=== PATIENT | female | born 1995 | race Caucasian/White ===

== ENCOUNTER 2017-10-13 12:12 | Emergency (ER) | payer BC ==
[~2017-10-13] VITALS: Ht 152.4 cm; Wt 52.3 kg
[~2017-10-13 12:12] MED LIST: ALBUTEROL0.83 MG/ML IH; CLARITIN 1010 MG/TAB PO; LEVAQUIN 5500 MG/TA1 PO; NORCO 325 MG-7.1 TAB PO; PREDNISONE20 MG PO; PROAIR HFA0.09 MG/AC IH; SINGULAIR 110 MG/TAB PO; VENTOLIN0.09 MG IH
[2017-10-13 12:30] VITALS: TEMP 98.5
[2017-10-13 13:36] LABS: INFLUENZA A NEGATIVE; INFLUENZA B NEGATIVE
[2017-10-13] MEDS ORDERED: FLOVENT DI100 MCG/Ac IH (14:05)
[2017-10-13] MEDS ORDERED: ALBUTEROL0.83 MG/ML IH (14:05)
[2017-10-13] MEDS ORDERED: PROAIR HFA0.09 MG/AC IH (14:05)
[2017-10-13 14:48] VITALS: BP 110/58; PULSE 113
== END 2017-10-13 14:50 | disposition home or self-care (01) ==
LOC: COL.ER 12:12
PROVIDERS: Physician Assistant
DX: J45.901 Unspecified asthma with (acute) exacerbation (principal); F17.210 Nicotine dependence, cigarettes, uncomplicated; Z91.19 Patient's noncompliance with other medical treatment and regimen
CPT/HCPCS: J7512

== ENCOUNTER 2017-10-13 19:48 | Emergency (ER) | payer BC ==
[~2017-10-13] VITALS: Ht 152.4 cm; Wt 52.3 kg
[~2017-10-13 19:48] MED LIST changes: +FLOVENT DI100 MCG/Ac IH
[2017-10-13 19:51] VITALS: TEMP 99
[2017-10-13 20:35] VITALS: BP 103/76; PULSE 121
== END 2017-10-13 20:54 | disposition home or self-care (01) ==
LOC: COL.ER 19:48
DX: J45.909 Unspecified asthma, uncomplicated (principal); F17.210 Nicotine dependence, cigarettes, uncomplicated
CPT/HCPCS: J7512

== ENCOUNTER → 2018-10-09 | Outpatient (CLI) | payer BC | LOC: COL.RAD 07:19 | DX: R10.31 Right lower quadrant pain (principal) ==

== ENCOUNTER 2019-07-09 10:05 | Emergency (ER) | payer BC ==
[~2019-07-09] VITALS: Ht 152.4 cm; Wt 64.4 kg
[2019-07-09 10:17] VITALS: TEMP 98.5
[2019-07-09] MEDS ORDERED: PROVENTIL0.09 MG/A1 IH (10:21)
[2019-07-09] MEDS ORDERED: ZANTAC 7575 MG PO (10:21)
[2019-07-09] MEDS ORDERED: PRENATAL (10:21)
[2019-07-09 10:40] LABS: COLLECTION METHOD CLEAN CATCH
[2019-07-09 10:53] LABS: MUCOUS Present /lpf; PH 8 (5-8); SQUAMOUS EPITHELIAL 20-50 /hpf; URINE APPEARANCE Cloudy; URINE BACTERIA Rare /hpf; URINE BILIRUBIN Negative (NEGATIVE); URINE BLOOD Negative (NEGATIVE); URINE COLOR Yellow; URINE GLUCOSE Negative (NEGATIVE); URINE KETONE Negative (NEGATIVE); URINE LEUKOCYTE ESTERASE 1+ (NEGATIVE); URINE NITRATE Negative (NEGATIVE); URINE PROTEIN(semi-quant) Negative (NEGATIVE); URINE UROBILINOGEN Negative (NEGATIVE)
[2019-07-09 10:53] LABS: BASO % 0.2 % (0.0-2.0); EOS # 0.3 (0.0-0.7); GRAN # 11.6 (1.4-6.5); GRAN % 84.6 % (42.2-75.2); HEMOGLOBIN 12.4 g/dl (12.5-16.0); LYMPH % 7.6 % (20.0-51.0); MEAN CELL VOLUME 94 fl (80.0-100.0); MEAN CORPUSCULAR HEMOGLOBIN 32 pg (27.0-31.0); MEAN CORPUSCULAR HGB CONC 34 g/dl (33.0-37.0); MEAN PLATELET VOLUME 9.6 fl (7.4-10.4); MONO # 0.7 (0.1-0.6); MONO % 4.8 % (1.7-9.3); PLATELET COUNT 310 K/mm3 (130-400); RED BLOOD COUNT 3.89 M/mm3 (4.10-5.30); REDCELL DISTRIBUTION WIDTH-CV 12.5 % (11.5-14.5)
[2019-07-09 10:56] LABS: HEMATOCRIT 36.6 % (37.0-47.0)
[2019-07-09 11:10] LABS: ALANINE AMINOTRANSFERASE < 6 U/L (9-52); ALBUMIN 3.7 gm/dL (3.5-5.0); ALKALINE PHOSPHATASE 98 U/L (50-136); ANION GAP 10 mmol/L (7-16); AST,SGOT 24 U/L (15-37); BILIRUBIN,TOTAL 0.3 mg/dL (0.0-1.0); BLOOD UREA NITROGEN 6 mg/dL (7-17); CALCIUM 8.9 mg/dL (8.4-10.2); CARBON DIOXIDE 22 mmol/L (22-30); CHLORIDE 106 mmol/L (98-107); CREATININE, serum 0.35 (0.52-1.25); GLUCOSE 104 mg/dL (74-106); POTASSIUM 3.6 mmol/L (3.4-5.0); SODIUM 138 mmol/L (137-145); TOTAL PROTEIN 6.9 gm/dL (6.4-8.2)
[2019-07-09 16:07] VITALS: BP 113/61; PULSE 88
[2019-07-09 16:19] LABS: LIPASE 43 U/L (23-300)
== END 2019-07-09 16:08 | disposition home or self-care (01) ==
LOC: COL.ER 10:05
PROVIDERS: Emergency Medicine
DX: O26.893 Other specified pregnancy related conditions, third trimester (principal); R10.9 Unspecified abdominal pain; Z3A.29 29 weeks gestation of pregnancy
CPT/HCPCS: J1170

== ENCOUNTER 2019-09-14 06:55 | Inpatient (IN) | payer BC ==
[~2019-09-14] VITALS: Ht 152.4 cm; Wt 70.0 kg
[2019-09-14] VITALS (39 sets, daily range): BP systolic 96–130; BP diastolic 53–69; PULSE 67–106; TEMP 97.4–99
[~2019-09-14 06:55] MED LIST changes: +PRENATAL; +PROVENTIL0.09 MG/A1 IH; +ZANTAC 7575 MG PO
--- NOTE | 2019-09-14 07:00 | NUR ---
Pt arrives on unit ambulatory with spouse for induction of labor. Changed into a clean gown. EFM and toco applied. VSS. Pt denies regular ctx, vaginal bleeding, LOF and reports GFM. Admission assessment completed. Consents signed. IV started in LF. Labs drawn. LR infusing. Pt updated on POC. Safety reviewed. Bed locked in low position. Call light within reach. No questions or concerns at this time.
[2019-09-14] MEDS ORDERED: NEXIUM 40MG40 MG PO (07:10)
[2019-09-14 07:54] LABS: BASO # 0.1 (0.0-0.2); BASO % 0.4 % (0.0-2.0); EOS # 0.5 (0.0-0.7); GRAN # 7.8 (1.4-6.5); GRAN % 66.5 % (42.2-75.2); HEMOGLOBIN 11.6 g/dl (12.5-16.0); LYMPH # 2.3 (1.2-3.4); LYMPH % 19.5 % (20.0-51.0); MEAN CELL VOLUME 91 fl (80.0-100.0); MEAN CORPUSCULAR HEMOGLOBIN 30 pg (27.0-31.0); MEAN CORPUSCULAR HGB CONC 33 g/dl (33.0-37.0); MEAN PLATELET VOLUME 9.9 fl (7.4-10.4); MONO # 1.1 (0.1-0.6); MONO % 9.1 % (1.7-9.3); PLATELET COUNT 416 K/mm3 (130-400); RED BLOOD COUNT 3.85 M/mm3 (4.10-5.30); REDCELL DISTRIBUTION WIDTH-CV 13.3 % (11.5-14.5)
--- NOTE | 2019-09-14 10:26 | NUR ---
Pt sitting upright for epidural placement. Difficulty tracing FHR due to maternal position. RN at bedside adjusting montiors. FHR audible. Pt updated on POC. Safety reviewed. No questions or concerns at this time.
--- NOTE | 2019-09-14 14:30 | NUR ---
Pt calls out with increasing pressure. SVE per this RN C/+2. Dr. Gomes notified. See physician notification. Pt prepped for delivery. 1500-Dr. Gomes at bedside. 1508- of viable female attended by Dr. Gomes. Cord clamped x 2 and cut from umbilicus. dried and placed on mother's abdomen. Care of infant to Galo Peralta RN. Apgars . 1511- of placenta. Pitocin bolus infusing per protocol. Fundus firm at umbilicus. Bleeding WNL. Bilateral labial laceration repair performed by Dr. Gomes on a 4-0 Vicryl on SH. Pericare performed. Ice pack applied. Pt updated on POC. Safety reviewed. Bed locked in low position. Call light within reach. No questions or concerns at this time.
[2019-09-15 01:20] VITALS: BP 105/56; PULSE 60; TEMP 97.6
[2019-09-15 07:55] VITALS: BP 102/56; PULSE 77; TEMP 97.4
[2019-09-15 11:00] VITALS: BP 109/59; PULSE 85; TEMP 97.8
[2019-09-15] MEDS ORDERED: MOTRIN 800800 MG/TAB PO (13:26)
[2019-09-15 15:20] VITALS: BP 105/52; PULSE 82; TEMP 98.3
[2019-09-15 21:10] VITALS: BP 106/56; PULSE 65; TEMP 97.9
[2019-09-16 07:54] VITALS: BP 116/68; PULSE 78; TEMP 98.1
== END 2019-09-16 10:50 | disposition home or self-care (01) | DRG 807 ==
LOC: LDR 06:55 → OB 06:55
PROVIDERS: ADMIT Obstetrics & Gynecology
PROC: 10907ZC Drainage of Amniotic Fluid, Therapeutic from Products of Conception, Via Natural or Artificial Opening (ICD-10-PCS; principal; 2019-09-14)
PROC: 3E033VJ Introduction of Other Hormone into Peripheral Vein, Percutaneous Approach (ICD-10-PCS; 2019-09-14)
PROC: 0HQ9XZZ Repair Perineum Skin, External Approach (ICD-10-PCS; 2019-09-14)
PROC: 10E0XZZ Delivery of Products of Conception, External Approach (ICD-10-PCS; 2019-09-14)
DX: O99.824 Streptococcus B carrier state complicating childbirth (principal); Z37.0 Single live birth; J45.909 Unspecified asthma, uncomplicated; O99.52 Diseases of the respiratory system complicating childbirth; Z3A.39 39 weeks gestation of pregnancy; O70.0 First degree perineal laceration during delivery
CPT/HCPCS: J1200; J2540; J2590; J7120

== ENCOUNTER → 2020-01-22 | Outpatient (CLI) | payer BC ==
[~2020-01-22] MED LIST changes: +MOTRIN 800800 MG/TAB PO; +NEXIUM 40MG40 MG PO
== END ==
LOC: COL.RAD 09:46
DX: R10.11 Right upper quadrant pain (principal)
CPT/HCPCS: A9537; J2805

== ENCOUNTER 2020-07-18 07:04 | Emergency (ER) | payer BC ==
[~2020-07-18] VITALS: Ht 152.4 cm; Wt 63.6 kg
[2020-07-18] MEDS ORDERED: ZITHROMAX Z PA250 MG PO (09:37)
[2020-07-18] MEDS ORDERED: PREDNISONE20 MG PO (09:37)
[2020-07-18 10:16] VITALS: BP 134/61; PULSE 97; TEMP 97.3
== END 2020-07-18 10:20 | disposition home or self-care (01) ==
LOC: COL.ER 07:04
DX: J45.901 Unspecified asthma with (acute) exacerbation (principal); J06.9 Acute upper respiratory infection, unspecified; Z20.828 Contact with and (suspected) exposure to other viral communicable diseases; F17.210 Nicotine dependence, cigarettes, uncomplicated

== ENCOUNTER 2020-07-28 22:23 | Emergency (ER) | payer BC ==
[~2020-07-28] VITALS: Ht 152.4 cm; Wt 61.4 kg
[~2020-07-28 22:23] MED LIST changes: +ZITHROMAX Z PA250 MG PO
[2020-07-28 22:54] VITALS: TEMP 98.5
[2020-07-29 00:58] VITALS: BP 117/72; PULSE 72
== END 2020-07-29 01:22 | disposition home or self-care (01) ==
LOC: COL.ER 22:23
DX: S93.402A Sprain of unspecified ligament of left ankle, initial encounter (principal); J45.909 Unspecified asthma, uncomplicated; Z79.52 Long term (current) use of systemic steroids; X50.1XXA Overexertion from prolonged static or awkward postures, initial encounter

== ENCOUNTER 2020-07-31 13:20 | Emergency (ER) | payer BC ==
[~2020-07-31] VITALS: Ht 152.4 cm; Wt 61.4 kg
[2020-07-31 13:31] VITALS: BP 109/69; TEMP 99.3
[2020-07-31 14:05] VITALS: PULSE 89
== END 2020-07-31 14:05 | disposition home or self-care (01) ==
LOC: COL.ER 13:20
DX: S93.402A Sprain of unspecified ligament of left ankle, initial encounter (principal); J45.909 Unspecified asthma, uncomplicated; F17.210 Nicotine dependence, cigarettes, uncomplicated; Z79.52 Long term (current) use of systemic steroids; X50.1XXA Overexertion from prolonged static or awkward postures, initial encounter; Y92.009 Unspecified place in unspecified non-institutional (private) residence as the place of occurrence of the external cause